=== PATIENT | female | born 1995 | race African-American/Black ===

== ENCOUNTER 2017-04-08 13:15 | Emergency (ER) | payer MEDICAID ==
[~2017-04-08] VITALS: Ht 162.6 cm; Wt 66.0 kg
[~2017-04-08 13:15] MED LIST: FERR1TAB51; IOHEXOL-350 100 ML BOTTLE ONE; PREN-88; SODIUM CHLORIDE 0.9% 10ML VIAL ONE
[2017-04-08] MEDS ORDERED: KETOROLAC 30MG/ML VIAL IV STA (13:36)
[2017-04-08] MEDS ORDERED: LIDOCAINE HCL/PF 1% 2ML VIAL ONE (13:39)
[2017-04-08 14:09] LABS: HEMATOCRIT. 37.8 % (36.0-48.0); HEMOGLOBIN. 12.7 g/dL (12.0-16.0); MEAN CORPUSCULAR HEMOGLOBIN 29.5 pg (28.0-32.0); MEAN CORPUSCULAR VOLUME 87.8 fL (81.0-99.0); PLATELET 191 x1000/uL (130-400); RED BLOOD CELL COUNT 4.31 mill/uL (4.2-5.4); RED CELL DISTRIBUTION WIDTH 14.8 % (11.6-14.6)
[2017-04-08 14:13] LABS: BG BASE EXCESS -1.3 mmol/L (-2.0-2.0); BG CARBOXYHEMOGLOBIN 1.4 % (0.5-1.5); BG DEOXYHEMOGLOBIN 2.4 % (0.0-5.0); BG HCO3 ACT 22.5 mmol/L (22.0-26.0); BG METHEMOGLOBIN 0.3 % (0.0-1.5); BG OXYGEN SATURATION 97.6 % (92.0-98.5); BG OXYHEMOGLOBIN 95.9 % (94.0-97.0); BG PH 7.426 (7.350-7.450); BG PO2 99.5 mmHg (75.0-100.0); BG SAMPLE SITE LEFT RADIAL; BG TOTAL HEMOGLOBIN 13.1 g/dL (12.0-18.0); BG VENT MODE ROOM AIR
[2017-04-08 14:18] LABS: D-DIMER 0.48 mg/L FEU (<0.50); PROTHROMBIN TIME 10.7 sec (9.4-11.6)
[2017-04-08 14:25] LABS: CARBON DIOXIDE 28 mEq/L (21-32); CHLORIDE 106 mEq/L (98-107); TROPONIN I < 0.02 ng/mL (0.00-0.04)
[2017-04-08 14:43] LABS: HCG SCREEN NEGATIVE
[2017-04-08 15:52] LABS: PLATELET ESTIMATE NORMAL
[2017-04-08 17:26] VITALS: BP 121/66
== END 2017-04-08 17:26 | disposition home or self-care (01) ==
LOC: ER 13:25
DX: R06.00 Dyspnea, unspecified (principal); R07.9 Chest pain, unspecified; R06.02 Shortness of breath; Z87.891 Personal history of nicotine dependence
CPT/HCPCS: 36415; 36600; 71010; 71275; 80053; 82375; 82805; 83880; 84484; 84703; 85025; 85379; 85610; 93005; 96374; 99285; A4216; J1885; J3490; Q9967; Z7610